=== PATIENT | female | born 1960 | race Caucasian/White ===

== ENCOUNTER → 2018-11-14 | Outpatient (CLI) | payer OTHER ==
[~2018-11-14] MED LIST: ATEN25TA PO; BUPR75TA5 PO; CETI10TA PO; CITA20TA6 PO; METH10TA PO; NICO21DI31 TD
--- NOTE | 2018-11-18 17:46 | SLEEPHOME ---
DATE OF PROCEDURE: 11/14/2018 ORDERED BY: VIKI Harrington Diagnostic home sleep testing was performed due to concern for the obstructive sleep apnea syndrome. For testing a nocturnal T3 respiratory monitoring device was used. Continuous record was made of pulse, oxygen saturation, airflow, chest, abdominal strain and body position. 10 hours and 59 minutes of data were reviewed. There were 6 hours and 27 minutes marked as time in bed. During the interval marked time in bed, there were 78 respiratory events identified of 10 seconds in duration or greater for a respiratory event index of 12.1. The events were primarily obstructive. Baseline pulse rate 53, pulse rate ranged 46-74. Baseline saturation 91. Saturations fell to 81%. Testing was performed in both the supine and nonsupine positions. IMPRESSION: Abnormal home sleep testing with repetitive respiratory events and oxygen desaturations to 81% with a respiratory event index of 12.1 is consistent with the obstructive sleep apnea syndrome. RECOMMENDATIONS: The patient should be encouraged to undergo a formal sleep evaluation.
== END ==
LOC: M SLEEP HO 10:03
PROVIDERS: ATTEND Nurse Practitioner Family
DX: G47.9 Sleep disorder, unspecified (principal)

== ENCOUNTER → 2019-02-03 | Outpatient (CLI) | payer OTHER ==
--- NOTE | 2019-02-03 14:49 | REP ---
CT maxillofacial bones. History: Chronic maxillary sinusitis. No comparison imaging. CT findings: There is a uninterrupted right maxillary wisdom tooth. The maxilla is otherwise edentulous. There is mild mucosal thickening affecting the left maxillary sinus with two small mucous retention cysts. The maxillary sinuses are otherwise clear. There is a mucous retention cyst in one of the posterior ethmoid air cells on the right. Ethmoid sinuses are otherwise clear. Frontal sinuses are clear. Sphenoid sinuses are clear. Mastoid aeration is normal and symmetrical. There is vascular calcification in the carotid siphons bilaterally. On coronal scan images the ostiomeatal complexes are widely patent. Bony nasal septum deviates slightly to the left without a visible beak. Impression: Minimal leftward deviation of the nasal septum. Partial opacification left posterior ethmoid air cell. Small mucous retention cyst in the floor the left maxillary sinus. Otherwise negative. Electronically Signed by Navjot Dick MD 02/03/2019 03:18 P
== END ==
LOC: M RAD 13:44
PROVIDERS: ATTEND Otolaryngology
DX: J32.0 Chronic maxillary sinusitis (principal)

== ENCOUNTER 2019-03-19 07:23 | Day surgery (SDC) | payer OTHER ==
[~2019-03-19] VITALS: Ht 167.6 cm; Wt 80.7 kg
[~2019-03-19 07:23] MED LIST changes: +CHOL100029 PO; +LEVO150T7 PO
[2019-03-19] MEDS ORDERED: dexameTHASONE 4 MG/ML 1ML VIAL (J1100) IV ONE (08:00)
[2019-03-19] MEDS ORDERED: LR 1,000 ML IV ONE (08:00)
[2019-03-19] MEDS ORDERED: SCOPOLAMINE 1MG TRANSDERMAL PATCH As Ordered ONE (08:13)
[2019-03-19] MEDS ORDERED: SODIUM CHLORIDE 0.9% NASAL GEL 15GM (AYR) As Ordered ONE (08:21)
[2019-03-19] MEDS ORDERED: LIDOCAINE W/EPINEPHRINE 1% 20ML VIAL As Ordered ONE (08:22)
[2019-03-19] MEDS ORDERED: METHYLENE BLUE 0.5% (5MG/ML) 10 ML AMP (PROVAYBLUE)(Q9968 PER 1MG) As Ordered ONE (08:22)
[2019-03-19] MEDS ORDERED: EPINEPHrine INJ 1 MG/ML 1ML VIAL As Ordered ONE (08:22)
[2019-03-19 08:23] LABS: BLOOD UREA NITROGEN 19 MG/DL (7-18); CALCIUM LEVEL 9.1 MG/DL (8.5-10.1); CARBON DIOXIDE LEVEL 27 MEQ/L (21-32); CHLORIDE LEVEL 107 MEQ/L (98-107); CREATININE FOR GFR 0.96 MG/DL (0.55-1.30); GLOMERULAR FILTRATION RATE > 60.0 (>51); GLUCOSE, FASTING 113 MG/DL (70-100); POTASSIUM SERUM 3.9 MEQ/L (3.5-5.1); SODIUM LEVEL 140 MEQ/L (136-145)
[2019-03-19] MEDS ORDERED: SCOPOLAMINE 1MG TRANSDERMAL PATCH TOP ONE (08:30)
[2019-03-19] MEDS ORDERED: EPINEPHrine 1MG/ML INJ 30ML MD-VIAL As Ordered ONE (08:30)
[2019-03-19] MEDS ORDERED: MIDAZOLAM INJ 2 MG/2 ML VIAL (J2250) As Ordered ONE (09:06)
[2019-03-19] MEDS ORDERED: ONDANSETRON 4MG/2ML VIAL (J2405) As Ordered ONE (09:06)
[2019-03-19] MEDS ORDERED: dexameTHASONE 4 MG/ML 1ML VIAL (J1100) As Ordered ONE (09:06)
[2019-03-19] MEDS ORDERED: LIDOCAINE 2% INJ 100 MG/5 ML SDV (FOR ANES.) As Ordered ONE (09:06)
[2019-03-19] MEDS ORDERED: fentaNYL 250 MCG/5 ML INJECTION (J3010) As Ordered ONE (09:06)
[2019-03-19] MEDS ORDERED: PROPOFOL 200 MG/20 ML VIAL As Ordered ONE (09:06)
[2019-03-19] MEDS ORDERED: METOCLOPRAMIDE INJ 10MG/2ML VIAL (J2765) As Ordered ONE (09:06)
[2019-03-19] MEDS ORDERED: SUGAMMADEX SODIUM 500 MG/5 ML VIAL (BRIDION) As Ordered ONE (09:06)
[2019-03-19] MEDS ORDERED: ROCURONIUM BROMIDE 50 MG/5 ML VIAL As Ordered ONE ×3 (09:06→10:58)
[2019-03-19] MEDS ORDERED: LACRILUBE (AKWA TEARS) OPHTH OINT 3.5 GM As Ordered ONE (09:14)
[2019-03-19] MEDS ORDERED: ePHEDrine SULFATE 25 MG/5 ML(5MG/ML) SYRINGE As Ordered ONE (09:32)
[2019-03-19] MEDS ORDERED: PHENYLephrine HCL 500 MCG/5 ML (100MCG/ML) SYRINGE (J2370) As Ordered ONE (09:32)
[2019-03-19] MEDS ORDERED: VASOPRESSIN INJ 20 UNITS/ML VIAL As Ordered ONE (09:37)
[2019-03-19] MEDS ORDERED: fentaNYL 100 MCG/2 ML INJECTION (J3010) As Ordered ONE (11:43)
[2019-03-19] MEDS ORDERED: HYDROMORPHONE HCL 0.5 MG/ 0.5 ML SYRINGE (J1170 PER 1) IV PRN (11:45)
[2019-03-19] MEDS ORDERED: METOCLOPRAMIDE INJ 10MG/2ML VIAL (J2765) IV PRN (11:45)
[2019-03-19] MEDS ORDERED: ONDANSETRON 4MG/2ML VIAL (J2405) IV PRN (11:45)
[2019-03-19] MEDS: fentaNYL 100 MCG/2 ML INJECTION (J3010) IV PRN ×2 (11:45→11:50)
[2019-03-19] MEDS ORDERED: PERCOCET 5MG/325MG TAB PO PRN (11:45)
[2019-03-19] MEDS ORDERED: LR 1,000 ML IV SCH ×2 (11:45→12:00)
[2019-03-19 14:35] VITALS: BP 170/93
--- NOTE | 2019-04-26 14:35 | RO ---
DATE OF PROCEDURE: 03/19/2019 PREOPERATIVE DIAGNOSES: Deviated nasal septum, chronic maxillary sinusitis, chronic ethmoid sinusitis and chronic laryngitis. POSTOPERATIVE DIAGNOSES: Deviated nasal septum, chronic maxillary sinusitis, chronic ethmoid sinusitis and chronic laryngitis. PROCEDURE PERFORMED: 1. Stereotactic surgery using the BrainLAB. 2. Endoscopic septoplasty. 3. Bilateral endoscopic maxillary antrostomy. 4. Bilateral endoscopic anterior and posterior ethmoidectomy. 5. Implantation of bilateral PROPEL stents. SURGEON: Evens Hendricks MD SHOP MECHANIC HELPER: ANESTHESIA: General. CLINICAL PREAMBLE: This 58-year-old woman presented to the office with a history of chronic rhinosinusitis. She has not responded well to the medical management. CT of the sinuses revealed anatomic anomalies involving the nasal septum, maxillary sinuses and ethmoid sinuses. As such, management options including the surgery listed above have been discussed. The patient understood and consented to the procedure. OR NARRATION: The patient was identified in preop holding and brought to the operating room in stable condition. In supine position on the operating room table, the patient received general anesthesia followed by orotracheal intubation without incident. The patient was prepped and draped in the usual fashion for the procedure. Both eyes were protected using lubricant and Tegaderm. The headband for the BrainLAB system was successfully attached to the forehead. Good surface matching was obtained between the BrainLAB system and the patient's facial anatomy. Both sides of the nasal cavity were packed using pledgets soaked in 1:100,000 epinephrine. After a waiting period, the pledgets were removed. Using a 0 degree nasal endoscope examination of both sides of the nasal cavity was carried out. Deviated septum into the left nasal cavity was noted. The deviated portion of the nasal septum was then infiltrated with 1% lidocaine with 1:100,000 epinephrine. Mucoperichondrial and mucoperiosteal flap was developed around the deviated portion of the nasal septum. The deviated septum was then successfully resected. This afforded much more access for the left osteomeatal complex. At this time, the anterior surfaces of the middle and nasal turbinates were infiltrated with 1% lidocaine with 1:100,000 epinephrine. The left middle nasal turbinate was gently medialized. The uncinate process was identified and then resected. The left maxillary antrum was then successfully identified using ball tip probe. Using side biting forceps, the left maxillary antrostomy was then performed. The left maxillary sinus cavity was then irrigated. At this time, the left ethmoid bulla was identified and resected using the Blakesley forceps. Additional diseased anterior ethmoid cells were also taken down. The basal lamella was identified and penetrated. Diseased posterior ethmoid air cells were then resected using forceps. Attention was then turned to the right side of the nasal cavity. The right middle nasal turbinate was gingerly medialized. The right uncinate process was identified and resected. A maxillary antrostomy was performed using side biting forceps. Right ethmoidalis bullae was resected. Diseased right anterior ethmoid air cells were then resected as well. The right basal lamella was identified and penetrated. The diseased posterior air cells were then similarly resected as well. Cottonoid pledgets soaked in 1:100,000 epinephrine was then placed into each side of the osteomeatal complex area to afford complete hemostasis. The PROPEL stent was inserted into the left and the right osteomeatal complex to ensure medialization of the middle nasal turbinate. At the end of the procedure, sponge and instrument counts were correct. COMPLICATIONS: No complications were encountered. ESTIMATED BLOOD LOSS: Approximately 50 mL. General anesthesia was reversed and the patient was extubated and brought to the recovery room in stable condition. In the recovery area, the patient exhibited full and symmetrical extraocular motion with no evidence of periocular ecchymosis.
== END 2019-03-19 14:50 | disposition home or self-care (01) ==
LOC: M SDC 07:23
PROVIDERS: ATTEND Otolaryngology
DX: J34.2 Deviated nasal septum (principal); J32.0 Chronic maxillary sinusitis; J32.2 Chronic ethmoidal sinusitis; J37.0 Chronic laryngitis; I10 Essential (primary) hypertension; E89.0 Postprocedural hypothyroidism; K21.9 Gastro-esophageal reflux disease without esophagitis; R06.83 Snoring; F17.210 Nicotine dependence, cigarettes, uncomplicated; Z88.0 Allergy status to penicillin; Z91.040 Latex allergy status; Z79.899 Other long term (current) drug therapy; Z85.850 Personal history of malignant neoplasm of thyroid
CPT/HCPCS: 30520; 31255; 31256; 36415; 80048; 88300; 88305; C2625; J1100; J2250; J2370; J2405; J2765; J3010; Q9968

== ENCOUNTER 2019-05-26 08:48 | Day surgery (SDC) | payer OTHER ==
[~2019-05-26] VITALS: Ht 170.2 cm; Wt 82.9 kg
[~2019-05-26 08:48] MED LIST changes: +ATOR1TAB21 PO; +D 202000 PO; +LIDOCAINE 1% MDV 20ML VIAL SQ PRN; +LR 1,000 ML IV ONE; +MULTCAP PO; +TUMS500C PO; +ceFAZolin SOD 2 GM in IV 1 EA IV ONE
[2019-05-26] MEDS ORDERED: ROPIvacaine 0.5% 30 ML INJECTION (J2795 PER 1MG) ONE (08:49)
[2019-05-26] MEDS ORDERED: EPINEPHrine INJ 1 MG/ML 1ML VIAL ONE (08:49)
[2019-05-26] MEDS ORDERED: EPINEPHrine 1MG/ML INJ 30ML MD-VIAL As Ordered ONE (11:55)
[2019-05-26] MEDS ORDERED: fentaNYL 100 MCG/2 ML INJECTION (J3010) As Ordered ONE (12:03)
[2019-05-26] MEDS ORDERED: MIDAZOLAM INJ 2 MG/2 ML VIAL (J2250) As Ordered ONE ×2 (12:03→12:12)
[2019-05-26] MEDS ORDERED: ROCURONIUM BROMIDE 50 MG/5 ML VIAL As Ordered ONE (12:11)
[2019-05-26] MEDS ORDERED: dexameTHASONE 4 MG/ML 1ML VIAL (J1100) As Ordered ONE ×2 (12:11→12:12)
[2019-05-26] MEDS ORDERED: LIDOCAINE 2% INJ 100 MG/5 ML SDV (FOR ANES.) As Ordered ONE (12:11)
[2019-05-26] MEDS ORDERED: propofoL 200 MG/20 ML VIAL As Ordered ONE (12:11)
[2019-05-26] MEDS ORDERED: ONDANSETRON 4MG/2ML VIAL (J2405) As Ordered ONE (12:11)
[2019-05-26] MEDS ORDERED: SUGAMMADEX SODIUM 500 MG/5 ML VIAL (BRIDION) As Ordered ONE (12:11)
[2019-05-26] MEDS ORDERED: fentaNYL 250 MCG/5 ML INJECTION (J3010) As Ordered ONE (12:12)
[2019-05-26] MEDS ORDERED: SCOPOLAMINE 1MG TRANSDERMAL PATCH As Ordered ONE (12:15)
[2019-05-26] MEDS: fentaNYL 100 MCG/2 ML INJECTION (J3010) IV SCH ×2 (12:29→12:49)
[2019-05-26] MEDS: MIDAZOLAM INJ 2 MG/2 ML VIAL (J2250) IV SCH ×2 (12:29→12:37)
[2019-05-26] MEDS ORDERED: SCOPOLAMINE 1MG TRANSDERMAL PATCH TOP ONE ×2 (12:30→14:30)
[2019-05-26] MEDS ORDERED: PERCOCET 5MG/325MG TAB PO PRN (14:30)
[2019-05-26] MEDS ORDERED: fentaNYL 100 MCG/2 ML INJECTION (J3010) IV PRN (14:30)
[2019-05-26] MEDS ORDERED: METOCLOPRAMIDE INJ 10MG/2ML VIAL (J2765) IV PRN (14:30)
[2019-05-26] MEDS ORDERED: ONDANSETRON 4MG/2ML VIAL (J2405) IV PRN (14:30)
[2019-05-26] MEDS ORDERED: MEPERIDINE INJ 25 MG/ML VIAL (J2175) IV PRN (14:30)
[2019-05-26] MEDS ORDERED: LR 1,000 ML IV SCH (14:30)
[2019-05-26] MEDS ORDERED: oxyCODONE 5MG TAB PO PRN ×2 (14:45)
[2019-05-26 16:55] VITALS: BP 188/88
--- NOTE | 2019-05-27 16:28 | RO ---
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 PROCEDURE: Left shoulder arthroscopy with arthroscopic biceps tenodesis, subacromial decompression, distal clavicle excision approximately 1.1 cm, and acromioplasty. SURGEON: Roby Graf MD AUTOTRANSFUSIONIST: Bennie Jackson PA-C, who was essential for instrument and suture management. ANESTHESIA: General. PREOPERATIVE ANTIBIOTICS: 2 grams of Ancef. BLOOD LOSS: Minimal. INDICATIONS: A 58-year-old female who failed nonoperative modes of treatment including, but not limited to, infection, damage to surrounding structures, incomplete relief, and wished to proceed. DESCRIPTION OF PROCEDURE: Patient was brought in to the operating room (OR) in supine position, underwent general anesthesia, and then was placed into the beach chair position. Left arm was prepped and draped in the usual fashion. We did a time-out confirming side, site, and surgery. Once all in agreement, we made a stab incision for the posterior portal into the glenohumeral joint. We then re-established an anterior portal within the rotator interval and used an Arthrex #7 cannula, at which point we evaluated the joint. Both the humeral and glenoid cartilage changes had grade 1/2 Outerbridge changes along with a significant SLAP tear. Decision was made at this point to do a biceps tenodesis. We then used a Scorpion to pass a TigerLoop suture through the biceps tendon just proximal to the groove. We then liberated the biceps from the superior labrum. We debrided the anterior and superior labrum with a combination of coagulation and a shaver, at which point we prepped the bone at the top of the bicipital groove with the coagulation and shaver. We then used a 4.5 SwiveLock anchor to do a biceps tenodesis. It was secure and well placed, at which point we evaluated the rotator cuff. I did not identify any full-thickness tear. There was slight fraying, but the integrity appeared to be adequate. We then entered the subacromial space, established our lateral portal, and used shaver and coagulation to do a subacromial decompression. We then used the power rasp to do anterior leading edge acromioplasty and proceeded posteriorly and medially. We identified the AC joint under the clavicle, and it appeared to be impinging upon the rotator cuff, at which point we made the decision to do a distal clavicle excision approximately 1.1 cm with the power rasp along with coplaning underneath. Once this was done, we evaluated rotator cuff once again. The cuff at the distal insertion appeared to be in full integrity. However, we did see some exposed muscle fibers more proximally, more overlying the glenoid, and this was also evident within the glenohumeral joint as well. Fortunately, there was nothing to repair at that point and also the muscle appeared to transition to tendon quite well, so hopefully with the decompressive procedure, this will stop any further irritation and restore the patient's function and pain levels. At that point, we were happy with our procedure. We irrigated just as much fluid as possible. We then closed the ports with #3-0 nylon and placed a dressing over top and placedinto sling. Patient was then awakened and taken to the postanesthesia care unit (PACU) in stable condition. POSTOPERATIVE PLAN: The patient will work on active assisted and active range of motion for approximately 6 weeks. At 6 weeks, we will start full range of motion, including passive range of motion; and at 3 months, she can start strengthening and will lead to full activity. Patient expressed understanding and agreement with this ahead of time. RACHEL
== END 2019-05-26 16:55 | disposition home or self-care (01) ==
LOC: M SDC 08:48
PROVIDERS: ATTEND Orthopaedic Surgery Hand Surgery
DX: M75.42 Impingement syndrome of left shoulder (principal); M75.32 Calcific tendinitis of left shoulder; M19.012 Primary osteoarthritis, left shoulder; Z85.850 Personal history of malignant neoplasm of thyroid; I10 Essential (primary) hypertension; E78.5 Hyperlipidemia, unspecified; E03.9 Hypothyroidism, unspecified; K21.9 Gastro-esophageal reflux disease without esophagitis; F17.218 Nicotine dependence, cigarettes, with other nicotine-induced disorders; Z79.899 Other long term (current) drug therapy; Z88.0 Allergy status to penicillin; Z91.040 Latex allergy status
CPT/HCPCS: 29824; 29826; 29828; 64415; C1713; J0690; J1100; J2250; J2405; J2795; J3010